=== PATIENT | female | born 1985 | race Caucasian/White ===

== ENCOUNTER → 2018-01-24 | Day surgery (SDC) | payer MEDICAID ==
[~2018-01-24] VITALS: Ht 167.6 cm; Wt 66.0 kg
[~2018-01-24] MED LIST: AMPICILLIN/SULBAC 3 GM/NS 100 ML IV SCH; CHLORHEXIDINE GLUCONATE 2 % 1 PACK (2 CLOTHS) TOPICAL PRN; DEXAMETHASONE SOD PHOS 4 MG/ML VIAL ONE; DIPH25CA PO; INSULIN HUMAN REGULAR 1,000 UNITS/10 ML VIAL SQ PRN; LACTATED RINGER'S 1000 ML IV PRN; LIDOCAINE 1%/EPINEPHrine 1:100,000 SOLN 20 ML VIAL ONE; METOPROLOL TARTRATE 25 MG TAB PO PRN; MIDAZOLAM HCL 2 MG/2 ML VIAL ONE; OXYMETAZOLINE HCL 0.05% 15 ML NASAL SPRAY ONE; POVIDONE IODINE 5% (ANTISEPSIS KIT) 4 APPLICATIONS EACH NARE PRN; SODIUM CHLORID 0.9% 500 ML IV PRN; fentaNYL CITRATE 250 MCG/5 ML AMP ONE
[2018-01-24 10:05] VITALS: PULSE 107
[2018-01-24 10:25] VITALS: BP 154/84; PULSE 103; RESP 18; O2SAT 96
--- NOTE | 2018-01-24 17:02 | MP ---
cc: Lam Silva MD DATE OF OPERATION: 01/24/2018 DATE OF OPERATION: 01/24/2018 SURGEON: Lam Silva MD PREOPERATIVE DIAGNOSES: Lesion of right floor of mouth. POSTOPERATIVE DIAGNOSIS: Lesion of right floor of mouth. PROCEDURE PERFORMED: Excision of lesion, right floor of mouth with primary closure. INDICATIONS FOR PROCEDURE: Documented in the history and physical. DESCRIPTION OF PROCEDURE: The patient was taken to OR #2 and placed in the supine position. Following induction of general anesthesia and intubation, she was prepped and draped for surgery. Using a Ciapple mouth gag, the mouth was opened as wide as possible and the tongue was retracted toward the right. 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 This was excised with a 15 blade scalpel and scissors dissection. The defect of mucosa was then closed with interrupted sutures of 4-0 Vicryl and the procedure was terminated. The mouth gag was removed. The patient was reversed from anesthesia and taken to recovery in good condition. There were no complications. ESTIMATED BLOOD LOSS: Less than 10 mL. Lam Silva MD [facility] , 04:44 PM , 05:01 PM
== END | disposition home or self-care (01) ==
LOC: PHSDC 08:30
PROVIDERS: ATTEND Otolaryngology
DX: D37.09 Neoplasm of uncertain behavior of other specified sites of the oral cavity (principal)
CPT/HCPCS: 00170; 41116; 88305; J0295; J1100; J2250; J3010; J7120